=== PATIENT | male | born 1960 | race Caucasian/White ===

== ENCOUNTER → 2017-08-19 | Day surgery (SDC) | payer OTHER ==
[~2017-08-19] VITALS: Ht 172.7 cm; Wt 100.0 kg
[~2017-08-19] MED LIST: ACETAMINOPHEN/HYDROcodone 325 MG/5 MG TAB ONE; ASPI-183 PO; ATOR80TA45 PO; BUPIVACAINE/EPINEPHRINE 0.5% PF 30 ML VIAL ONE; CARV25TA PO; CHLORHEXIDINE GLUCONATE 2 % 1 PACK (2 CLOTHS) TOPICAL PRN; CLOP75TA PO; DULA0.5I SQ; INSULIN HUMAN REGULAR 1,000 UNITS/10 ML VIAL ONE; LACTATED RINGER'S 1000 ML IV PRN; LANTUS2P SQ; LOSA100T PO; METF1000 PO; METOPROLOL TARTRATE 25 MG TAB PO PRN; MIDAZOLAM HCL 2 MG/2 ML VIAL ONE; MUPIROCIN 2% OINT 22 GM TUBE ONE; POVIDONE IODINE 5% (ANTISEPSIS KIT) 4 APPLICATIONS EACH NARE PRN; SERT-132 PO; SODIUM CHLORID 0.9% 500 ML IV PRN; ceFAZolin 1,000 MG/NS 100 ML IV SCH
[2017-08-19 12:20] VITALS: BP 148/77; PULSE 65; RESP 16; TEMP 98.2; O2SAT 98
--- NOTE | 2017-08-19 14:54 | EKG ---
Date Performed: 08/19/2017 Time Performed: 07:16:46 PTAGE: 57 years EKG: Sinus rhythm WITH FIRST DEGREE AV BLOCK RIGHT BUNDLE BRANCH BLOCK ABNORMAL ECG Since the PREVIOUS TRACING , no significant change noted PREVIOUS TRACIN06/23/2015 09.57 DOCTOR: Ty Ibarra Interpretating Date/Time 08/19/2017 14:50:41
--- NOTE | 2017-08-20 20:20 | PD.OP ---
Operative Report Date of Surgery: Aug 19, 2017 Preoperative Diagnosis: (1) Finger fracture, left Postoperative Diagnosis: (1) Finger fracture, left Procedure: Open reduction internal fixation of left ring finger intra-articular proximal phalangeal base fracture with 3 fragments (60530) Surgeon: Jimmy Wang Barrer And Tacker(s): . Operation and Findings: 57-year-old male who presented to clinic with a left ring finger intra- articular P1 base fracture. Risk benefits and alternative treatments were discussed. All questions were answered and the patient expressed understanding. The patient elected to assume the risks of open reduction internal fixation of the above fracture. Informed consent was obtained. The surgical site was marked in the preoperative holding bay. The patient was given antibiotics on-call to the operating room. The patient was taken to the operating room and all pressure points were padded. A surgical timeout was performed. After the smooth induction of general anesthesia, the surgical site was instilled with quarter percent Marcaine with epinephrine. The surgical site was prepped and draped in the usual sterile fashion. The left upper extremity was exsanguinated using an Esmarch bandage and an appropriately padded upper extremity tourniquet was inflated to 250 mmHg. A dorsal incision was then made overlying the left ring finger proximal phalanx. Blunt dissection was carried down to the extensor mechanism which was sharply incised down to bone in the midline. The periosteal elevator was used to raise radial and ulnar periosteal flaps. The fracture was mobilized, distracted, and curetted of granulation tissue. 3 main fragments were appreciated, namely radial and ulnar base fragments as well as the phalangeal shaft. These were significantly displaced and rotated. Multiple reduction forceps were able to bring the fracture into excellent alignment. This was confirmed with mini C arm. A 1.3 mm box plate was contoured and fixated to the dorsal ulnar aspect of the proximal phalanx. Excellent reduction was confirmed on mini C arm and the screw lengths were adjusted as appropriate. Final images were taken with the mini C-arm. With tenodesis, the ring finger exhibited return of normal cascade. The joint capsule of the MCP joint was reapproximated with a running 5 -0 Vicryl. The central slip was repaired using a running 3-0 PDS with buried knots. The skin was reapproximated with interrupted 3-0 nylons in a horizontal mattress fashion. The surgical site was cleaned, and dressed with mupirocin ointment, Xeroform gauze, dry gauze fluffs, and an appropriately padded ulnar gutter splint. The tourniquet was released at 127 minutes. All digits pinked up nicely. All needle sponge and instrument counts were correct x2. The patient arrived stable and doing well to the PACU Jimmy Wang MD Aug 20, 2017 20:20
== END | disposition home or self-care (01) ==
LOC: PHSDC 06:08
PROVIDERS: ATTEND Student in an Organized Health Care Education/Training Program
DX: S62.615A Displaced fracture of proximal phalanx of left ring finger, initial encounter for closed fracture (principal); I10 Essential (primary) hypertension; E11.9 Type 2 diabetes mellitus without complications; Z79.4 Long term (current) use of insulin
CPT/HCPCS: 01830; 26746; 76000; 82948; 93005; C1713; J0690; J1815; J2250; J3010; J7040; J7120